=== PATIENT | male | born 1970 | race African-American/Black ===

== ENCOUNTER 2016-07-27 16:58 | Emergency (ER) | payer SELFPAY ==
[2016-07-27] MEDS ORDERED: PROAIR HFA8.5 GM (19:40)
[2016-07-27] MEDS ORDERED: CELEBREX100 M1 PO (19:41)
[2016-07-27] MEDS ORDERED: PROTONIX40 M2 PO (19:41)
[2016-07-27] MEDS ORDERED: FLOMAX0.4 M1 PO (19:41)
[2016-07-27] MEDS ORDERED: TRAZODONE HCL100 M1 PO (19:41)
[2016-07-27] MEDS ORDERED: IMITREX100 M2 PO (19:42)
[2016-07-27] MEDS ORDERED: PROPRANOLOL HCL60 M2 PO (19:42)
[2016-07-27] MEDS ORDERED: ORPHENADRINE C100 M1 PO (19:42)
[2016-07-27] MEDS ORDERED: CYCLOBENZAPRINE10 M1 PO (19:42)
[2016-07-27] MEDS ORDERED: NORCO 5-325 TA1 EACH PO (20:09)
== END 2016-07-27 20:26 ==
LOC: EDMED 16:58
DX: G89.29 Other chronic pain (principal); I10 Essential (primary) hypertension; K21.9 Gastro-esophageal reflux disease without esophagitis; Z87.891 Personal history of nicotine dependence

== ENCOUNTER 2016-08-13 22:55 | Emergency (ER) | payer MEDICAID ==
[~2016-08-13 22:55] MED LIST: CELEBREX100 M1 PO; CYCLOBENZAPRINE10 M1 PO; FLOMAX0.4 M1 PO; IMITREX100 M2 PO; NORCO 5-325 TA1 EACH PO; ORPHENADRINE C100 M1 PO; PROAIR HFA8.5 GM; PROPRANOLOL HCL60 M2 PO; PROTONIX40 M2 PO; TRAZODONE HCL100 M1 PO
[2016-08-13 23:54] LABS: BASO % 0.2 % (0-2); EOS % 1.4 % (0-7); EOSINOPHIL ABSOLUTE COUNT 0.1 tho/cmm (0.0-0.7); HCT-HEMATOCRIT 35.7 % (36.0-53.5); HGB-HEMOGLOBIN 12.5 gm/dl (13.5-17.0); IMMATURE GRANULOCYTES ABSOLUTE 0.01 tho/cmm (0-0.03); IMMATURE GRANULOCYTES PERCENT 0.2 % (0-0.3); LYMPH % 46.7 % (20-45); LYMPH ABSOLUTE COUNT 2.3 tho/cmm (0.8-4.5); MCH (MEAN CORPUSCULAR HGB) 31.7 pg (28.0-32.0); MCV (MEAN CELL VOLUME) 90.6 fl (82.0-96.0); MEAN PLATELET VOLUME 8.6 cmc (9.4-12.4); MONO % 6.8 % (0-12); MONOCYTE ABSOLUTE COUNT 0.3 tho/cmm (0.0-1.2); NEUTROPHIL ABSOLUTE COUNT 2.2 tho/cmm (1.6-8.0); NEUTROPHIL-AUTOMATED 2.2 tho/cmm (1.6-8.0); NEUTROPHILS % 44.7 % (40-80); PLATELET COUNT 195 tho/cmm (150-450); RED BLOOD COUNT 3.94 mil/cmm (4.40-5.70)
[2016-08-14 00:23] LABS: CREATININE 0.88 mg/dl (0.60-1.30); eGFR VALUE FOR BLACK >90 mL/Min
[2016-08-14 00:24] LABS: ALB/GLOB RATIO 0.8 (0.8-2.0); ALBUMIN 3.5 g/dl (3.5-5.0); ALKALINE PHOSPHATASE 74 U/L (33-138); ALT/SGPT 29 U/L (12-78); ANION GAP 12 mmol/L (0-20); AST/SGOT 21 U/L (10-40); BILIRUBIN,TOTAL 0.3 mg/dl (0.0-1.5); BLOOD UREA NITROGEN 14 mg/dl (6-24); CALCIUM 8.6 mg/dl (8.5-10.5); CARBON DIOXIDE-VENOUS 26 mmol/L (22-32); CHLORIDE 108 mmol/l (96-110); GLUCOSE 88 mg/dL (70-110); LIPASE 269 U/L (73-393); POTASSIUM 3.9 mmol/L (3.7-5.1); SODIUM 142 mmol/L (135-145)
[2016-08-14 02:30] LABS: URINE BILIRUBIN NEGATIVE (NEG); URINE BLOOD NEGATIVE (NEG); URINE GLUCOSE (UA) NEGATIVE (NEG); URINE KETONE NEGATIVE (NEG); URINE LEUKOCYTE ESTERASE POSITIVE (NEG); URINE NITRITE NEGATIVE (NEG); URINE PROTEIN SMALL (NEG); URINE SPECIFIC GRAVITY 1.015 (1.003-1.030)
[2016-08-14 02:31] LABS: URINE APPEARANCE HAZY; URINE COLOR YELLOW
[2016-08-14] MEDS ORDERED: BACTRIM DS TAB1 EAC2 PO (02:38)
[2016-08-14 02:41] LABS: URINE BACTERIA 1+; URINE EPITHELIAL CELLS RARE /[HPF] (0-10); URINE RBC 0 /[HPF] (0-5); URINE WBC RARE /[HPF] (0-5)
[2016-08-14] MEDS ORDERED: PERCOCET 5-3251 EACH PO (02:45)
== END 2016-08-14 02:56 ==
LOC: EDMED 22:55
PROVIDERS: Emergency Medicine
DX: R10.2 Pelvic and perineal pain (principal); F17.200 Nicotine dependence, unspecified, uncomplicated; Z98.890 Other specified postprocedural states
CPT/HCPCS: J0696; J1170; J1885; J2405; J7030; Q9967